=== PATIENT | male | born 2000 | race Asian ===

== ENCOUNTER 2018-01-09 08:44 | Emergency (ER) | payer OTHER ==
[2018-01-09 08:54] VITALS: BP 90/57
--- NOTE | 2018-01-09 09:02 | EDPHY ---
H & P Stated Complaint: "I have something on my butt" Time Seen by Provider: 01/09/18 08:56 HPI/ROS: CHIEF COMPLAINT: Pilonidal cyst HISTORY OF PRESENT ILLNESS: The patient presents to the ED with a painful pilonidal cyst to his gluteal area. The patient denies any fever, drainage or additional acute complaints. He denies prior history of surgery. The patient is Mandarin speaking. He was interviewed with the special effects technician over the video phone. The patient denies any acute abdominal pain, back pain, numbness or weakness. The patient's father did have a history of pilonidal cyst as well. REVIEW OF SYSTEMS: A comprehensive 10 point review of systems is otherwise negative aside from elements mentioned in the history of present illness. Source: Patient - Medical/Surgical History Hx Asthma: No Hx Chronic Respiratory Disease: No Hx Diabetes: No Hx Cardiac Disease: No Hx Renal Disease: No Hx Cirrhosis: No Hx Alcoholism: No Hx HIV/AIDS: No Hx Splenectomy or Spleen Trauma: No Other PMH: denies - Social History Smoking Status: Never smoked - Physical Exam Exam: General Appearance: Alert, no distress Eyes: Pupils equal and round no pallor or injection ENT, Mouth: Mucous membranes moist Respiratory: There are no retractions, lungs are clear to auscultation Cardiovascular: Regular rate and rhythm Gastrointestinal: Abdomen is soft and nontender, no masses, bowel sounds normal Neurological: 5/5 strength all 4 extremities Skin: Small pilonidal cyst noted to the gluteal cleft, no surrounding erythema , no fluctuance Musculoskeletal: Neck is supple nontender Extremities: symmetrical, full range of motion Constitutional: Initial Vital Signs Temperature (C) 37.0 C 01/09/18 08:51 Heart Rate 88 01/09/18 08:51 Respiratory Rate 18 01/09/18 08:51 Blood Pressure 90/57 L 01/09/18 08:51 O2 Sat (%) 97 01/09/18 08:51 O2 Delivery Mode Room Air Allergies/Adverse Reactions: gentamicin Allergy (Verified 01/09/18 09:10) Home Medications: Medication Instructions Recorded Amoxicillin/Clavulanate Pot 875 mg PO BID #14 tab 01/09/18 [Augmentin 875 mg tablet] NK [No Known Home Meds] 01/09/18 Medical Decision Making ED Course/Re-evaluation: The patient has a very small pilonidal cyst. It is not particularly fluctuant. There is no surrounding cellulitis or erythema. I will opt for conservative measures with antibiotics and warm compresses. The patient has been instructed to return to the ED for increasing pain, redness or swelling. The patient is given the number of our on-call general surgeon to schedule a follow-up appointment with. Patient's discharge instructions were relayed over the video following with the help of the [employer] special effects technician. Departure - Departure Disposition: Home, Routine, Self-Care Clinical Impression: Pilonidal cyst without abscess Condition: Good Instructions: Pilonidal Cyst (ED) Additional Instructions: 1. Please contact the surgeon you have been referred to for evaluation of your cyst. 2. Please take antibiotics as directed for next 7 days. 3. Please return to the ED for increasing pain, redness, swelling or fever as this may be the sign of a cyst which requires drainage Referrals: Hero Newsome MD [Medical Doctor] - As per Instructions
== END 2018-01-09 09:15 | disposition home or self-care (01) ==
DX: L05.91 Pilonidal cyst without abscess (principal)

== ENCOUNTER 2018-01-11 19:41 | Emergency (ER) | payer OTHER ==
--- NOTE | 2018-01-11 20:17 | EDPHY ---
General Time Seen by Provider: 01/11/18 19:49 Narrative: CHIEF COMPLAINT: Pilonidal cyst HISTORY OF PRESENT ILLNESS: Patient presents with complaints of worsening abscess. The location is over his buttocks on the left side. It has been present for 5 days. He was seen here 2 days ago and treated conservatively at that time as there was no fluctuance or abscess that could be drained at the time. He has been taking his Augmentin as prescribed. He has worsening pain, increasing size of the abscess and some drainage. No fever. No abdominal pain. No painful bowel movements. No mucous or purulence in his stool. No other associated complaints or modifying factors. TETANUS STATUS: Up-to-date MEDICAL/SURGICAL/SOCIAL HISTORY: uncomplicated. Nonsmoker. Nondiabetic REVIEW OF SYSTEMS: Ten systems reviewed and are negative unless otherwise noted in the HPI EXAMINATION: Vitals: Triage VS reviewed General Appearance: Alert, no distress Head: normocephalic, atraumatic Cardiovascular: Pulses normal throughout. Brisk cap refill Neurological: A&O, sensory symmetric, strength symmetric Skin: Warm and dry, no rash. Left buttock pilonidal cyst with double comadone and fluctuance. No surrounding cellulitis. Minimal induration. Extremities: Nontender, no pedal edema DIFFERENTIAL DIAGNOSES: Including but not limited to laceration, laceration complication, laceration foreign body, laceration with deep tissue injury MDM: 7:50 p.m. Suspected pilonidal cyst versus buttock abscess. There is no evidence of perirectal or perianal abscess. No fecal material was present and incision and drainage. This was tolerated well without difficulty. No packing was placed. The wound was copiously irrigated. Dressing placed. I have changed his antibiotic to Bactrim and Keflex. He will contact Dr. Newsome for definitive care this week. We discussed ED precautions for abdominal pain, painful bowel movements, fever or increasing redness over the area. He is comfortable this plan. Discharged home stable condition. SUPERVISION: Patient was independently examined, but I discussed the case with my secondary supervising physician Dr. Sheridan ED Precautions: Worsening pain. Erythema, edema, cyanosis, pallor, paresthesia or anesthesia. - History Smoking Status: Never smoked - Objective Vital Signs: Initial Vital Signs Temperature (C) 97.7 F 01/11/18 19:46 Heart Rate 112 H 12/07/18 19:46 Respiratory Rate 16 01/11/18 19:46 Blood Pressure 125/72 H 01/11/18 19:46 O2 Sat (%) 96 01/11/18 19:46 O2 Delivery Mode Room Air Allergies/Adverse Reactions: gentamicin Allergy (Verified 01/09/18 09:10) Home Medications: Medication Instructions Recorded Amoxicillin/Clavulanate Pot 875 mg PO BID #14 tab 01/09/18 [Augmentin 875 mg tablet] Cephalexin [Keflex (*)] 500 mg PO QID #40 cap 01/11/18 Sulfamethox/Tmp 800/160 mg 1 tab PO BID 10 Days tab 01/11/18 [Bactrim Ds] Departure - Departure Disposition: Home, Routine, Self-Care Clinical Impression: Pilonidal cyst with abscess Condition: Good Instructions: Cephalexin (By mouth), Sulfamethoxazole/Trimethoprim (By mouth), Hydrocodone/Acetaminophen (By mouth), Pilonidal Cyst (ED), Abscess Incision and Drainage (DC) Additional Instructions: 1. Discontinue your previous antibiotics and change to the antibiotics below. 2. Bactrim 1 pill by mouth twice daily for 10 days 3. Keflex 1 pill by mouth 4 times daily for [address] Newsome for outpatient definitive care 5. Return here for worsening symptoms, pain, fever, abdominal pain or painful bowel movements Referrals: Hero Newsome MD [Medical Doctor] - As per Instructions Physician,Emergency DeptMD [Medical Doctor] - As per Instructions Prescriptions: Cephalexin [Keflex (*)] 500 mg PO QID #40 cap Sulfamethox/Tmp 800/160 mg [Bactrim Ds] 1 tab PO BID 10 Days tab
[2018-01-11] MEDS ORDERED: SULFAMET/TMP DS PREPACK#2 BTL TAKEHOME ONE (20:19)
[2018-01-11] MEDS ORDERED: CEPHALEXIN 500MG PREPACK#4 BTL TAKEHOME ONE (20:19)
[2018-01-11] MEDS ORDERED: HYDROCOD/APAP 5/325 PREPACK#6 BTL TAKEHOME ONE (20:20)
[2018-01-11 20:48] VITALS: BP 115/86
== END 2018-01-11 20:46 | disposition home or self-care (01) ==
PROC: 0H98XZZ Drainage of Buttock Skin, External Approach (ICD-10-PCS; principal; 2018-01-11)
DX: L05.01 Pilonidal cyst with abscess (principal)